=== PATIENT | male | born 1995 | race Two or more races ===

== ENCOUNTER 2020-08-24 18:22 | Emergency (ER) | payer MEDICAID ==
[~2020-08-24] VITALS: Ht 180.3 cm; Wt 86.0 kg
[~2020-08-24 18:22] MED LIST: BUSP30TA2 PO; PALI156D IM; PROP10TA10 PO; TRAZ300T2 PO
[2020-08-24 18:25] VITALS: BP 134/78
== END 2020-08-24 19:18 | disposition home or self-care (01) ==
LOC: ER 18:23
DX: F11.90 Opioid use, unspecified, uncomplicated (principal); F14.90 Cocaine use, unspecified, uncomplicated; Z72.89 Other problems related to lifestyle; Z98.890 Other specified postprocedural states; Z79.899 Other long term (current) drug therapy
CPT/HCPCS: 99281

== ENCOUNTER 2020-08-27 18:08 | Emergency (ER) | payer MEDICAID ==
[~2020-08-27] VITALS: Ht 170.2 cm; Wt 81.8 kg
--- NOTE | 2020-08-27 18:49 | NUR ---
WASHED AND RINSED PT'S FACE WITH WATER.
[2020-08-27 19:02] VITALS: BP 129/103
--- NOTE | 2020-08-27 19:03 | NUR ---
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 ENCOURAGED TO RELAX ARM FOR ACCURATE BLOOD PRESSURE
--- NOTE | 2020-08-27 19:04 | NUR ---
SEVERAL SCRATCHES NOTED ON PT ARM AND LEGS. OLD SCAR ON RIGHT SHOULDER
== END 2020-08-27 19:25 ==
LOC: ER 18:08
DX: Z00.8 Encounter for other general examination (principal); F11.90 Opioid use, unspecified, uncomplicated; F31.9 Bipolar disorder, unspecified; F14.90 Cocaine use, unspecified, uncomplicated; Z98.890 Other specified postprocedural states; Z72.89 Other problems related to lifestyle; Z79.899 Other long term (current) drug therapy
CPT/HCPCS: 99283

== ENCOUNTER 2022-01-31 15:02 | Emergency (ER) | payer MEDICAID ==
[~2022-01-31] VITALS: Ht 180.3 cm; Wt 68.2 kg
[2022-01-31 15:07] VITALS: BP 128/100
== END 2022-01-31 15:32 | disposition home or self-care (01) ==
LOC: ER 15:03
DX: T40.411A Poisoning by fentanyl or fentanyl analogs, accidental (unintentional), initial encounter (principal); F31.9 Bipolar disorder, unspecified; F11.10 Opioid abuse, uncomplicated; Z79.899 Other long term (current) drug therapy; F14.10 Cocaine abuse, uncomplicated; Y92.89 Other specified places as the place of occurrence of the external cause
CPT/HCPCS: 99283

== ENCOUNTER 2022-02-13 16:43 | Emergency (ER) | payer MEDICAID ==
[~2022-02-13] VITALS: Ht 180.3 cm; Wt 77.3 kg
[2022-02-13 16:52] VITALS: BP 105/70
== END 2022-02-13 20:33 | disposition left against medical advice (07) ==
LOC: ER 16:44
DX: Z02.89 Encounter for other administrative examinations (principal); Z53.21 Procedure and treatment not carried out due to patient leaving prior to being seen by health care provider

== ENCOUNTER 2022-02-14 13:15 | Emergency (ER) | payer MEDICAID ==
[~2022-02-14] VITALS: Ht 180.3 cm; Wt 87.9 kg
[2022-02-14 13:57] VITALS: BP 106/72
== END 2022-02-14 15:07 | disposition home or self-care (01) ==
LOC: VAS 13:15
DX: Z13.89 Encounter for screening for other disorder (principal); F11.90 Opioid use, unspecified, uncomplicated; F31.9 Bipolar disorder, unspecified; F14.90 Cocaine use, unspecified, uncomplicated; F19.90 Other psychoactive substance use, unspecified, uncomplicated; Z72.89 Other problems related to lifestyle; Z98.890 Other specified postprocedural states; Z79.899 Other long term (current) drug therapy
CPT/HCPCS: 99281

== ENCOUNTER 2022-03-08 01:05 | Emergency (ER) | payer MEDICAID ==
[~2022-03-08] VITALS: Ht 177.8 cm; Wt 65.9 kg
[2022-03-08 01:08] VITALS: BP 133/89
== END 2022-03-08 02:03 ==
LOC: ER 01:06
DX: S40.012A Contusion of left shoulder, initial encounter (principal); S50.812A Abrasion of left forearm, initial encounter; S40.212A Abrasion of left shoulder, initial encounter; M25.512 Pain in left shoulder; R07.81 Pleurodynia; F31.9 Bipolar disorder, unspecified; F14.90 Cocaine use, unspecified, uncomplicated; F11.90 Opioid use, unspecified, uncomplicated; F19.90 Other psychoactive substance use, unspecified, uncomplicated; Z98.890 Other specified postprocedural states; Z72.89 Other problems related to lifestyle; Z79.899 Other long term (current) drug therapy; Y93.89 Activity, other specified; Y92.89 Other specified places as the place of occurrence of the external cause; Y99.8 Other external cause status
CPT/HCPCS: 71046; 73590; 99283; 99284

== ENCOUNTER 2022-04-21 21:22 | Emergency (ER) | payer MEDICAID ==
[~2022-04-21] VITALS: Ht 177.8 cm; Wt 86.8 kg
[2022-04-21 21:47] VITALS: BP 126/85
== END 2022-04-21 22:02 | disposition home or self-care (01) ==
LOC: ER 21:23
DX: T40.411A Poisoning by fentanyl or fentanyl analogs, accidental (unintentional), initial encounter (principal); F31.9 Bipolar disorder, unspecified; F11.10 Opioid abuse, uncomplicated; Y92.89 Other specified places as the place of occurrence of the external cause; Z02.89 Encounter for other administrative examinations
CPT/HCPCS: 99282; 99283

== ENCOUNTER 2022-04-30 05:44 | Emergency (ER) | payer MEDICAID ==
[~2022-04-30] VITALS: Ht 180.3 cm; Wt 81.8 kg
--- NOTE | 2022-04-30 07:06 | NUR ---
Patient states he took 3g fentanyl last night at approx 2200 prior to ER visit for medical clearance for booking. Patient medically cleared and Addendum: 04/30/22 at 0706 by C[facility] upon arrival to nursing home RN assessed patient and mistook patient swallowing fentanyl prior to arrival to nursing home. Officer at bedside at all times for safety.
[2022-04-30] MEDS ORDERED: normal saline 1000ml 1,000 ML IV ONE (07:30)
[2022-04-30] MEDS ORDERED: normal saline 1000ML IV soln IVB ONE (07:30)
[2022-04-30] MEDS ORDERED: bisacodyl 5mg tablet.DR PO PRN (07:50)
[2022-04-30 07:55] LABS: BASOPHILS # (AUTO) 0.1 X10'3 (0-0.2); EOSINOPHILS # (AUTO) 0.3 X10'3 (0-0.9); HEMATOCRIT 36.5 % (42.0-52.0); LYMPHOCYTES # (AUTO) 1.5 X10'3 (1.1-4.8); LYMPHOCYTES % (AUTO) 24.5 % (21-51); MEAN CORPUSCULAR HEMOGLOBIN 26.3 PG (27.0-31.0); MEAN CORPUSCULAR HGB CONC 32.9 g/dL (33.0-36.5); MEAN PLATELET VOLUME 7.1 FL (7.4-10.4); MONOCYTES # (AUTO) 0.7 X10'3 (0-0.9); MONOCYTES % (AUTO) 10.6 % (2-12); NEUTROPHILS # (AUTO) 3.7 X10'3 (1.8-7.7); NEUTROPHILS % (AUTO) 59.9 % (42-75); PLATELET COUNT 287 X10'3 (140-440); RED BLOOD COUNT 4.56 X10'6 (4.70-6.10); RED CELL DISTRIBUTION WIDTH 14.5 % (11.5-14.5); WHITE BLOOD COUNT 6.2 X10'3 (4.5-11.0)
[2022-04-30] MEDS ORDERED: PEG 3350/Na sulf,bicarb,Cl/KCl oral sol 4 liter bottle PO ONE (07:55)
[2022-04-30] MEDS: naloxone 0.4 mg/ml inj IV ONE ×2 (08:20→08:22)
--- NOTE | 2022-04-30 08:20 | NUR ---
TC TO POISON CONTROL FOR ADVICE. POISON CONTROL SUGGESTS CT OF ABDOMEN FOR CONFIRMATION OF INGESTION, GOLYTELY AND/OR LAXATIVES, NARCAN FOR SOMNOLENCE, URINE DRUG SCREEN, AND WATCH PATIENT FOR AT LEAST [address] KERR NOTIFIED OF POISON CONTROL SUGGESTIONS.
[2022-04-30 08:32] LABS: ALANINE AMINOTRANSFERASE 90 U/L (12-78); ALBUMIN 3.5 G/DL (3.4-5.0); ALBUMIN/GLOBULIN RATIO 0.9 (1.1-1.5); ALKALINE PHOSPHATASE 77 IU/L (46-116); ANION GAP 8 (8-16); ASPARTATE AMINO TRANSFERASE 61 U/L (10-37); BILIRUBIN,TOTAL 0.2 MG/DL (0.1-1.0); BLOOD UREA NITROGEN 15 MG/DL (7-18); BUN/CREATININE RATIO 16.3 (5.4-32.0); CALCIUM 8.7 MG/DL (8.5-10.1); CHLORIDE 108 MMOL/L (99-107); CREATINE KINASE 188 U/L (39-308); CREATININE 0.92 MG/DL (0.60-1.10); GLUCOSE 87 MG/DL (70-104); SODIUM 143 MMOL/L (135-145); TOTAL CARBON DIOXIDE 26.7 MMOL/L (24-32); TOTAL PROTEIN 7.2 G/DL (6.4-8.2); eGFR > 90 ML/MIN
[2022-04-30 13:00] VITALS: BP 124/79
--- NOTE | 2022-04-30 14:15 | NUR ---
TC FROM POISON CONTROL FOR CONDITION REPORT. POISON CONTROL HAS NO FURTHER SUGGESTIONS, SINCE PATIENT IS STABLE AT THIS TIME. SELF PAY REPRESENTATIVE IS RELEASING PATIENT FROM CUSTODY. PATIENT ATE 2 TURKEY SANDWICHES WITH JUICE. IV REMOVED PER PATIENT AND PATIENT STATES HE IS READY TO LEAVE. DC WRITTEN PER DR. KERR. PATIENT LEFT ER, AMBULATORY IN GOOD CONDITION.
== END 2022-04-30 14:28 | disposition home or self-care (01) ==
LOC: ER 05:45
DX: T40.411A Poisoning by fentanyl or fentanyl analogs, accidental (unintentional), initial encounter (principal); F31.9 Bipolar disorder, unspecified; F17.200 Nicotine dependence, unspecified, uncomplicated; Y92.89 Other specified places as the place of occurrence of the external cause
CPT/HCPCS: 36415; 71045; 74018; 76700; 80053; 82550; 83605; 84145; 85025; 96361; 96374; 99285; J2310; J7030